=== PATIENT | male | born 1990 | race Caucasian/White ===

== ENCOUNTER 2017-12-09 19:29 | Emergency (ER) | payer SELFPAY ==
--- NOTE | 2017-12-09 19:50 | ED.PDOC ---
History of Present Illness - General Chief Complaint: Headache Stated Complaint: headache, dental pain Time Seen by Provider: 12/09/17 19:49 Source: patient Exam Limitations: no limitations - History of Present Illness Initial Comments: Caden Perez 27 y/o male stated that he has intermittent throbbing headache for the last 2 weeks mostly right side of his head.Took advil/motrin which temporarily relieves headache .No nausea/vomiting,slight photophobia,no fever or chills,no blurry vision.Denies history of head trauma. Timing/Duration: intermittent, other Severity: moderate Improving Factors: nothing Worsening Factors: nothing Associated Symptoms: denies symptoms Allergies/Adverse Reactions: Allergies NO KNOWN ALLERGY Allergy (Verified 12/09/17 19:42) Home Medications: Ambulatory Orders Dexamethasone Tab [Decadron Tab] 4 mg PO DAILY #5 tab 12/09/17 Frovatriptan Succinate 2.5 mg PO ONCE PRN #7 tab 12/09/17 Promethazine Tab [Phenergan Tablet] 25 mg PO .Q4H PRN #10 tab 12/09/17 Review of Systems - Review of Systems Constitutional: States: no symptoms reported EENTM: States: no symptoms reported Neurological: States: see HPI, headache All other Systems: Reviewed and Negative, No Change from Baseline Past Medical History (General) - Patient Medical History Hx Seizures: No Hx Hypertension: No Hx Diabetes: No Family Medical History - Family History Mother Family History: No Known Physical Exam - Physical Exam General Appearance: Alert, Comfortable, No apparent distress Eye Exam: bilateral normal Ears, Nose, Throat: hearing grossly normal, normal ENT inspection, normal pharynx Neck: full range of motion, supple, normal inspection Respiratory: lungs clear, normal breath sounds Cardiovascular/Chest: normal peripheral pulses, regular rate, rhythm, no murmur Peripheral Pulses: radial,right: 2+, radial,left: 2+ Gastrointestinal/Abdominal: normal bowel sounds, non tender, soft, no organomegaly Back Exam: no CVA tenderness, no vertebral tenderness Extremity: normal inspection, no pedal edema, no calf tenderness Neurologic: interpreter II-XII nml as tested, alert, oriented x 3 Skin Exam: normal color, warm/dry Progress - Progress Progress: 12/09/17 20:01 Last Vital Signs Temp 97.5 F L 01/28/18 19:43 Pulse 80 12/09/17 19:43 Resp 20 12/09/17 19:43 BP 149/92 12/09/17 19:43 Pulse Ox 95 12/09/17 19:43 - Results/Orders Results/Orders: Laboratory Tests 12/09/17 12/09/17 12/09/17 20:00 20:00 20:00 WBC 6.8 RBC 4.80 Hgb 13.9 L Hct 40.8 L MCV 84.9 MCH 28.9 MCHC 34.2 RDW 13.2 Plt Count 250 MPV 7.6 Absolute Neuts (auto) 3.00 Absolute Lymphs (auto) 3.00 Absolute Monos (auto) 0.50 Absolute Eos (auto) 0.30 Absolute Basos (auto) 0.00 Neutrophils % 44.1 Lymphocytes % 43.7 Monocytes % 7.8 Eosinophils % 3.9 Basophils % 0.5 Sodium 140 Potassium 4.4 Chloride 108 Carbon Dioxide 26 Anion Gap 10.4 L BUN 13 Creatinine 0.76 BUN/Creatinine Ratio 17.1 Random Glucose 115 H Serum Osmolality 280.4 Calcium 8.8 Urine Color Urine Appearance Urine pH Ur Specific [place] Urine Protein Urine Glucose (UA) Urine Ketones Urine Blood Urine Nitrite Urine Bilirubin Urine Urobilinogen Ur Leukocyte Esterase Urine RBC Urine WBC Ur Epithelial Cells Urine Bacteria Urine Opiates Screen Negative Urine Barbiturates Negative Ur Phencyclidine Scrn Negative U Amphetamin/Meth Scrn Negative U Benzodiazepines Scrn Negative U Cocaine Metab Screen Negative U Cannabinoids Screen Negative 12/09/17 20:00 WBC RBC Hgb Hct MCV MCH MCHC RDW Plt Count MPV Absolute Neuts (auto) Absolute Lymphs (auto) Absolute Monos (auto) Absolute Eos (auto) Absolute Basos (auto) Neutrophils % Lymphocytes % Monocytes % Eosinophils % Basophils % Sodium Potassium Chloride Carbon Dioxide Anion Gap BUN Creatinine BUN/Creatinine Ratio Random Glucose Serum Osmolality Calcium Urine Color Yellow Urine Appearance Clear Urine pH 5.5 Ur Specific [place] >= 1.030 Urine Protein Negative Urine Glucose (UA) Negative Urine Ketones Trace Urine Blood Negative Urine Nitrite Negative Urine Bilirubin Negative Urine Urobilinogen 0.2 Ur Leukocyte Esterase Negative Urine RBC 0-1 Urine WBC 0-1 Ur Epithelial Cells 0-1 Urine Bacteria 0 Urine Opiates Screen Urine Barbiturates Ur Phencyclidine Scrn U Amphetamin/Meth Scrn U Benzodiazepines Scrn U Cocaine Metab Screen U Cannabinoids Screen - EKG/XRAY/CT CT Ordered: Yes - head w/o-no acute intracranial abnormalities Departure - Departure Clinical Impression: Headache Qualifiers: Headache type: unspecified Headache chronicity pattern: unspecified pattern Intractability: not intractable Qualified Code(s): R51 - Headache Time of Disposition: 21:06 Disposition: Discharge to Home or Self Care Condition: Good Departure Forms: ED Discharge - Pt. Copy, Patient Portal Self Enrollment Instructions: DI for Headache Referrals: GERA WHITTINGTON [Primary Care Provider] - 1-2 Weeks Prescriptions: Dexamethasone Tab [Decadron Tab] 4 mg PO DAILY #5 tab Frovatriptan Succinate 2.5 mg PO ONCE PRN #7 tab PRN Reason: Headache/Migraine Pain Promethazine Tab [Phenergan Tablet] 25 mg PO .Q4H PRN #10 tab PRN Reason: Nausea Home Medications: Ambulatory Orders Dexamethasone Tab [Decadron Tab] 4 mg PO DAILY #5 tab 12/09/17 Frovatriptan Succinate 2.5 mg PO ONCE PRN #7 tab 12/09/17 Promethazine Tab [Phenergan Tablet] 25 mg PO .Q4H PRN #10 tab 12/09/17 Additional Instructions: Follow up with primary Md call for your appointment
[2017-12-09] MEDS ORDERED: PROMETHAZINE HCL INJ 25 MG/ML VIAL IM ONE (19:55)
[2017-12-09] MEDS ORDERED: DEXAMETHASONE INJ 4 MG/ML VIAL IM ONE (19:55)
[2017-12-09] MEDS ORDERED: KETOROLAC TROMETHAMINE INJ 30 MG/ML VIAL IM ONE (19:55)
--- NOTE | 2017-12-09 20:48 | CT ---
EXAM DESCRIPTION: Head CLINICAL HISTORY: headache COMPARISON: TECHNIQUE: Contiguous axial CT images of the head were obtained. Coronal and sagittal reconstructions were created from the axial data. This exam was performed according to our departmental dose-optimization program, which includes automated exposure control, adjustment of the mA and/or kV according to patient size and/or use of iterative reconstruction technique. FINDINGS: Mucosal thickening involves the paranasal sinuses. There is no evidence of acute mass, mass effect, midline shift or hemorrhage. The ventricles and extra-axial CSF spaces are unremarkable. The brain parenchyma appears normal for the patient's age. No acute abnormalities of the bones is seen. IMPRESSION: No acute intracranial abnormality. Electronically signed by: Nima Huddleston 12/09/2017 8:47 PM HYDROLOGIST
[2017-12-09 21:25] VITALS: BP 138/81; TEMP 97.7; O2SAT 95
== END 2017-12-09 21:25 | disposition home or self-care (01) ==
LOC: ER 19:29
DX: R51 Headache (principal)
CPT/HCPCS: 36415; 70450; 80048; 80307; 81001; 85025; J1100; J1885; J2550